=== PATIENT | female | born 1945 | race Caucasian/White ===

== ENCOUNTER 2016-11-24 09:25 | Day surgery (SDC) | payer MEDICARE ==
[~2016-11-24] VITALS: Ht 166.4 cm; Wt 79.5 kg
[~2016-11-24 09:25] MED LIST: BIOTIN PO; CHOL2000 PO; MAGNESIUM/ZINC PO; VITA1TAB3 PO
[2016-11-24] MEDS ORDERED: BUPIVACAINE/PF 0.5% ONE (09:37)
[2016-11-24] MEDS ORDERED: FENTANYL PF 250 MCG/5ML ONE (09:52)
[2016-11-24] MEDS ORDERED: MIDAZOLAM 1 MG/ML, 2ML ONE (09:52)
[2016-11-24] MEDS ORDERED: LACTATED RINGERS 1,000 ML IV SCH (09:52)
[2016-11-24 09:54] VITALS: BP 129/81
[2016-11-24 09:57] VITALS: BP 129/81
[2016-11-24] MEDS ORDERED: MEPERIDINE/PF 25MG/0.5ML IVPush PRN (10:30)
[2016-11-24] MEDS ORDERED: ONDANSETRON 2MG/ML, 2ML IVPush PRN (10:30)
[2016-11-24] MEDS ORDERED: OXYcodone 5 MG/5 ML ORAL.SOL UDC PO PRN (10:30)
[2016-11-24] MEDS ORDERED: PROMETHAZINE 25 MG/ML, 1ML IV PRN (10:30)
[2016-11-24] MEDS ORDERED: LABETALOL 5MG/ML, 20ML IV PRN (10:30)
[2016-11-24] MEDS ORDERED: ACETAMINOPHEN 325 MG TABLET PO PRN (10:30)
[2016-11-24] MEDS ORDERED: PROPOFOL 10 MG/ML, 20ML ONE (13:36)
[2016-11-24] MEDS ORDERED: ROCURONIUM 10 MG/ML ONE (13:36)
[2016-11-24] MEDS ORDERED: SUCCINYLCHOLINE 20 MG/ML, 10ML ONE (13:36)
[2016-11-24] MEDS ORDERED: DEXAMETHASONE 4 MG/ML, 1ML ONE (13:36)
[2016-11-24] MEDS ORDERED: CEFOTETAN 2 GM ONE (13:36)
[2016-11-24] MEDS ORDERED: ONDANSETRON 2MG/ML, 2ML ONE (13:36)
[2016-11-24] MEDS ORDERED: FENTANYL PF 100 MCG/2ML ONE (14:27)
[2016-11-24] MEDS ORDERED: ACETAMINOPHEN 650 MG/20.3 ML UDC ONE (14:27)
[2016-11-24] MEDS ORDERED: OXYcodone 5 MG/5 ML ORAL.SOL UDC ONE (14:27)
[2016-11-24] MEDS: FENTANYL PF 100 MCG/2ML IV PRN ×2 (14:31→14:37)
[2016-11-24] MEDS ORDERED: HYDROmorphone 1 MG/ML, 1ML ONE (14:44)
[2016-11-24] MEDS: HYDROmorphone 1 MG/ML, 1ML IV PRN ×2 (14:46→14:54)
[2016-11-24] MEDS ORDERED: MEPERIDINE/PF 25MG/0.5ML ONE (15:07)
[2016-11-24] MEDS ORDERED: DIPHENHYDRAMINE 50 MG/ML, 1ML ONE (16:14)
[2016-11-24] MEDS ORDERED: DIPHENHYDRAMINE 50 MG/ML, 1ML IVPush PRN (16:30)
[2016-11-24] MEDS ORDERED: OXYcodone/APAP 5/325MG TABLET ONE (18:16)
[2016-11-24] MEDS ORDERED: OXYcodone/APAP 5/325MG TABLET PO PRN (18:30)
== END 2016-11-24 18:35 | disposition home or self-care (01) ==
LOC: OUT 09:25
PROVIDERS: ATTEND Surgery
DX: K81.1 Chronic cholecystitis (principal); K82.8 Other specified diseases of gallbladder; F17.200 Nicotine dependence, unspecified, uncomplicated; Z88.1 Allergy status to other antibiotic agents; Z72.89 Other problems related to lifestyle
CPT/HCPCS: 47562; 88304; J0330; J1100; J1170; J1200; J2175; J2250; J2405; J2704; J3010; J3490; J7120; S0074